=== PATIENT | male | born 1945 | race Caucasian/White ===

== ENCOUNTER 2024-10-07 14:04 | Outpatient (RCR) | payer BC, SELFPAY ==
--- NOTE | 2024-10-07 14:31 | CTCFLWUP_ITS ---
[facility] [address] [place], [place] [address] FOLLOW-UP NOTE Date: 10/07/2024 MR#: [id number] Name: DEANNE SINGH : 1945 Dx: C61 Malignant neoplasm of prostate Identification. Patient with bone mets and very high PSA of 45 noted 2 years ago and had biopsy 08/18 revealing [place] score 9 group 5 multiple areas of both right and left prostate. Patient currently receiving Lupron Xtandi as well as Xgeva. Most recent PSA 08/10/2024 less than 0.10 Prior bone scan plain x-rays shows widespread bone mets. Cervical MRI 12/03/2022 revealed osseous met involving base of odontoid but patient was not interested in getting this area treated. Having moderate pain alleviated with hydrocodone 10 every 6. Patient will be seeing his new medical oncologist Dr. Mcdonald next month. Pain meds renewed. cures website checked. I will see him again in 3 months. Electronically signed by: David Caldwell M.D. 10/07/2024 2:29 PM
== END 2024-10-17 23:59 | disposition home or self-care (01) ==
LOC: SCTC 14:04
PROVIDERS: PCP Nurse Practitioner Primary Care; Referring Provider Nurse Practitioner Primary Care; Visit Provider Radiology Therapeutic Radiology
DX: C61 Malignant neoplasm of prostate (principal); C79.51 Secondary malignant neoplasm of bone; G89.3 Neoplasm related pain (acute) (chronic); Z79.818 Long term (current) use of other agents affecting estrogen receptors and estrogen levels
CPT/HCPCS: 99213; G0463

== ENCOUNTER → 2024-11-06 | Outpatient (CLI) | payer MEDICARE, BC, SELFPAY ==
[2024-11-06 14:44] LABS: Basophils # (Auto) 0.1 Thou/mm3 (0.0-0.2); Basophils % (Auto) 1 % (0-2.5); Eosinophils # (Auto) 0.1 Thou/mm3 (0.0-0.5); Eosinophils % (Auto) 1 % (0-10); Hematocrit 38.7 % (41.0-53.0); Hemoglobin 13.1 g/dL (13.5-16.0); Immature Granulocytes % (Auto) 0 % (0-0); Immature Granulocytes Auto 0.02 Thou/mm3 (0.00-0.00); Lymphocytes % (Auto) 20 % (10-50); Mean Corpuscular HGB Conc 33.9 g/dl (31.0-37.0); Mean Corpuscular Volume 92 fL (80-100); Monocytes # (Auto) 1.1 Thou/mm3 (0.0-0.8); Monocytes % (Auto) 12 % (0-12); Neutrophils # (Auto) 6.4 Thou/mm3 (1.8-7.7); Neutrophils % (Auto) 66 % (37-80); Nucleated Red Blood Cell % 0 /100 WBC (0); Platelet Count 221 Thou/mm3 (140-440); RDW Standard Deviation 48.2 fL (35.1-43.9); Red Blood Count 4.23 Miln/mm3 (4.50-5.90); White Blood Count 9.8 Thou/mm3 (3.8-10.6)
[2024-11-06 14:54] LABS: Prostate Specific Antigen < 0.10 ng/mL (0-4.00)
[2024-11-06 15:08] LABS: Alanine Aminotransferase < 7 U/L (10-49); Albumin, Serum 4.3 gm/dL (3.4-4.8); Albumin/Globulin Ratio 2.3 (1.2-2.2); Alkaline Phosphatase 76 U/L (46-116); Anion Gap 5 (7-16); Aspartate Amino Transferase 10 U/L (0-34); BUN/Creatinine Ratio 21 Ratio (12-20); Bilirubin,Total 0.8 mg/dL (0.3-1.2); Blood Urea Nitrogen 23 mg/dL (9-23); Calcium 9.7 mg/dL (8.3-10.6); Calcium (Corrected) 9.7 mg/dL (8.5-10.1); Carbon Dioxide 27.6 mMol/L (20.0-31.0); Chloride 105 mMol/L (98-107); Creatinine (Component) 1.1 mg/dL (0.6-1.3); Globulin 1.9 gm/dL (2.3-3.5); Glucose 79 mg/dL (74-106); Osmolality,Calculated 278 (275-295); Potassium 4.2 mMol/L (3.4-5.1); Sodium 138 mMol/L (136-145); Total Protein 6.2 gm/dL (5.7-8.2); eGFR > 60 See Note
== END | disposition home or self-care (01) ==
PROVIDERS: PCP Nurse Practitioner Primary Care; Referring Provider Internal Medicine Hematology & Oncology; Visit Provider Internal Medicine Hematology & Oncology
DX: C61 Malignant neoplasm of prostate (principal); C79.51 Secondary malignant neoplasm of bone
CPT/HCPCS: 36415; 80053; 84153; 85025

== ENCOUNTER 2024-11-12 09:33 | Outpatient (RCR) | payer MEDICARE, BC, SELFPAY ==
--- NOTE | 2024-11-14 23:12 | CTCFLWUP_ITS ---
Patient: DEANNE SINGH : 1945 Page 3 of 4 FOLLOW UP NOTE DATE OF SERVICE: 11/10/2024 NAME: DEANNE SINGH ACCOUNT: [id number] : 1945 AGE: 79 INTERVAL HISTORY: Patient is here to follow-up on the prostate cancer. Denies any new complaint has been tolerating me dicine very well. Patient takes opiates for his chronic pain because of bone mets. There is no increase in the need of medication. 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 08/26/2022: Mr. Singh was admitted to [facility] because of nausea, decreased appetite as well as pain. He was found to have urinary obstruction hydroureteronephrosis. Tarango catheter was i nserted. Acute kidney injury was also documented. 08/26/2022: Mr. Singh had CT scan of the abdomen and pelvis without contrast? 08/27/2022: PSA 45.55. 08/29/2022: Bone scan? 09/03/2022: Mr. Singh had a transrectal ultrasound-guided biopsy of the prostate. Pathology showe d prostatic adenocarcinoma, [place] grade 9, grade group 5 with perineural invasion in multiple biops y samples 09/21/2022: Mr. Singh had x-rays of the pelvis, cervical spine as well as thoracic spine. These x- rays showed multiple osteoblastic metastatic lesions. 09/26/2022: Mr. Singh received first dose of Lupron 22.5 mg IM. He was also started on Casodex. 10/18/2022: Xtandi and Xgeva was started. 10/30/2022: PSA 1.83. 01/01/2023: PSA 0.28. 04/22/2023: PSA 0.12. 06/28/2023: PSA less than 0.10. 09/23/2023: PSA less than 0.10. 01/20/2024: PSA less than 0.10. 04/30/2024: PSA less than 0.10 OTHER MEDICAL HISTORY/CONDITIONS: bladder issures low blood pressure prostate ca wrist/??bilat???pin?/?platted ?Clone Other Med Hx? FAMILY HISTORY: Father:?prostate Sibling:?lukecia ?Clone Family Hx? SOCIAL HISTORY: Occupational?History:?retied [employer] Education?Level:?College Graduate, 2 year degree Marital?Status:? Tobacco?Pack?per?Day:?0 Tobacco?Use:?22?yrs ETOH?Use:?denies Drug?Note:?denies Social?History?Note:?lives?with?? ?Clone Social Hx? MEDICATIONS: 1. Casodex - 50 mg 1 tab once daily 2. Flomax - 0.4 mg 1 Capsule As directed 3. HYDROcodone-acetaminophen - 10-325 mg 1 tab q6 4. Marinol - 2.5 mg 1 Capsule twice a day 5. multivitamin - 1 Capsule Daily 6. Xtandi - 80 mg 2 tab Daily?Palabra Meds? Medications Last Reconciled by Mai Redman MA on 11/10/2024 ALLERGIES: No Known Allergies REVIEW OF SYSTEMS: A complete 14-point review of systems was performed and is negative except as noted in interval histo ry. PHYSICAL EXAMINATION: VITAL SIGNS: Temperature?97.2, B/P?132/85, Oxygen?Saturation?98% PAIN: 0 - No pain ECOG Performance Status: 1 - Symptomatic; ambulatory; restricted in strenuous activity GENERAL APPEARANCE: Appears well, in no apparent distress, appropriately interactive. HEENT: Normocephalic, no temporal wasting, normal conjunctiva, no scleral icterus, normal hearing, li ps without lesions, neck normal range of motion. CARDIOVASCULAR: Not assessed. PULMONARY: Normal respiratory effort, no respiratory distress or use of accessory muscles, speaking i n full sentences, no tachypnea. EXTREMITIES: No pedal edema or cyanosis. SKIN: Normal skin appearance. NEUROLOGIC: Alert and oriented x4. PSHYCHIATRIC: Appropriate affect, mood normal, behavior normal, intact thought and speech. LABORATORY DATA: I have personally reviewed and interpreted each of the patient?s relevant lab tests, abnormal finding s are below: Date 11/06/24 ??WHITE?BLOOD?COUNT?(Thou/mm3) 9.8 ??RED?BLOOD?COUNT?(Miln/mm3) 4.23?L ??HEMOGLOBIN?(gm/dl) 13.1?L ??HEMATOCRIT?(%) 38.7?L ??PLATELET?COUNT?(Thou/mm3) 221 ??NEUTROPHILS?%,?AUTO?(%) 66 ??LYMPH?%,?AUTO?(%) 20 ??NEUTROPHILS,?AUTO?(Thou/mm3) 6.4 ASSESSMENT/PLAN: 1. Stage IVb, castration sensitive metastatic prostate cancer with bone mets, Daniel score 9, grade 5, perineural invasion (09/03/2022) The patient is clinically doing well. He is tolerating Lupron Xt leonard and Xgeva well without any significant side effects. 2. PSA less than 0.10. 3. Currently Mr. Singh is on Lupron, Xtandi as well as Xgeva. The main side effect that he has is hot flashes.. 1. Continue Lupron, Xtandi (160 mg) as well as Xgeva. 2. I will see him back in clinic in 6 months with CBC, CMP as well as PSA done prior to the visit. CBC CMP PSA RETURN TO CLINIC: I will see him back in the clinic in 3 months. BILLING AND COMPLIANCE: I reviewed external records from providers outside my specialty as summarized above. I spent a total of 50 minutes on this patient?s care on the day of their visit excluding time spent related to any bi lled procedures. This time includes time spent with the patient as well as time spent documenting in the medical record, reviewing patients records and tests, obtaining history, placing orders, communi cating with other healthcare professionals, counseling the patient, family or caregiver, and/or care coordination for the diagnoses above. Electronically Signed by: José Mcdonald MD T: 11:10 PM CC: PCP: Lydia Grijalva Referring: Lydia Grijalva This document was completed utilizing speech recognition software. Grammatical errors, random word in sertions, pronoun errors, and incomplete sentences are an occasional consequence of this system due t o software limitations, ambient noise, and hardware issues. Any formal questions or concerns about th e content, text or information contained within the body of this dictation should be directly address ed to the provider for clarification.
== END 2024-11-17 23:59 | disposition home or self-care (01) ==
LOC: SCTC 09:33
PROVIDERS: PCP Nurse Practitioner Primary Care; Referring Provider Nurse Practitioner Primary Care; Visit Provider Internal Medicine Hematology & Oncology
DX: Z51.11 Encounter for antineoplastic chemotherapy (principal); C61 Malignant neoplasm of prostate; C79.51 Secondary malignant neoplasm of bone
CPT/HCPCS: 96372; 96402; J0897; J9217; Q3014

== ENCOUNTER → 2024-11-26 | Outpatient (BNVA) | payer OTHER, SELFPAY | END | disposition home or self-care (01) | PROVIDERS: PCP Nurse Practitioner Primary Care; Referring Provider Nurse Practitioner Primary Care; Visit Provider Urology | DX: C61 Malignant neoplasm of prostate (principal); C79.51 Secondary malignant neoplasm of bone; Z98.890 Other specified postprocedural states; F17.210 Nicotine dependence, cigarettes, uncomplicated | CPT/HCPCS: 99202; G0463 ==

== ENCOUNTER 2025-01-06 15:33 | Emergency (ER) | payer OTHER, MEDICARE, SELFPAY ==
[2025-01-06 16:04] VITALS: BP 122/71; PULSE 69; RESP 18; TEMP 37.2; O2SAT 95
--- NOTE | 2025-01-06 16:16 | XR_ITS ---
Examination: Tibia-Fibula, left , 2 views Technique: Tibia-fibula AP lateral 2 views Date and time of exam: January 06, 2024 at 1722 hrs. Indications: Redness swelling and pain involving the lower leg this week Findings: Moderate osteopenia No fracture No cortical bone destruction Surgical clips soft tissue posterior medial lower leg Partial visualization vascular stent posterior to the distal femur Impression: No cortical bone destruction
--- NOTE | 2025-01-06 16:16 | XR_ITS ---
Examination: Foot, left, 3 views Technique: AP, oblique, lateral views foot, 3 views Date and time of exam: January 06, 2025 1722 hrs. Indications: Redness swelling and pain involving the foot this this week Findings: Significant osteopenia Chronic erosions involving the distal aspect distal phalanx first digit No opaque foreign body No fracture Impression: Osteomyelitis distal phalanx third digit
--- NOTE | 2025-01-06 16:16 | XR_ITS ---
Examination: Duplex scan of the lower extremity, unilateral left complete Date and time of exam: January 06, 2025 1640 hrs. Indications: Nonhealing wound left lower extremity this month Technique: Duplex scan of the extremity veins using B-mode/grayscale imaging and Doppler spectral analysis and color flow Attention is directed to internal echogenicity, compression involving these veins, color flow assessment, spectral analysis Findings: Major deep venous structures in the extremity demonstrate normal course and caliber. There is no evidence of deep vein thrombosis. Normal color flow and spectral analysis No diagnostic visualization left posterior tibial and greater saphenous veins Impression: Limited study, no DVT demonstrated
--- NOTE | 2025-01-06 16:16 | PD.EDRME ---
Rapid Medical Screening Exam RME Arrival date/time: 01/06/25 15:33 7-year-old male presents emergency department today complains of left lower extremity redness and swelling Chief Complaint: Wound Recheck / Suture Removal Time Seen by Provider: 01/06/25 15:41 Vital signs: Vital Signs Temperature 98.9 F 01/06/25 16:04 Pulse Rate 69 01/06/25 16:04 Respiratory Rate 18 01/06/25 16:04 Blood Pressure 122/71 01/06/25 16:04 Pulse Oximetry (%) 95 01/06/25 16:04 Oxygen Delivery Method Room Air 01/06/25 16:04
[2025-01-06 17:46] LABS: Lactate (Lactic Acid) 1.5 mMol/L (0.4-2.0)
[2025-01-06 17:50] LABS: Basophils # (Auto) 0.1 Thou/mm3 (0.0-0.2); Basophils % (Auto) 1 % (0-2.5); Eosinophils # (Auto) 0.2 Thou/mm3 (0.0-0.5); Eosinophils % (Auto) 2 % (0-10); Hematocrit 39.6 % (41.0-53.0); Hemoglobin 13.3 g/dL (13.5-16.0); Immature Granulocytes % (Auto) 0 % (0-0); Immature Granulocytes Auto 0.03 Thou/mm3 (0.00-0.00); Lymphocytes % (Auto) 22 % (10-50); Mean Corpuscular HGB Conc 33.6 g/dl (31.0-37.0); Mean Corpuscular Hemoglobin 30.1 pg (25.0-35.0); Mean Corpuscular Volume 90 fL (80-100); Monocytes # (Auto) 1.1 Thou/mm3 (0.0-0.8); Monocytes % (Auto) 13 % (0-12); Neutrophils # (Auto) 5.7 Thou/mm3 (1.8-7.7); Neutrophils % (Auto) 62 % (37-80); Nucleated Red Blood Cell % 0 /100 WBC (0); Platelet Count 259 Thou/mm3 (140-440); RDW Standard Deviation 44.6 fL (35.1-43.9); Red Blood Count 4.42 Miln/mm3 (4.50-5.90); White Blood Count 9.1 Thou/mm3 (3.8-10.6)
[2025-01-06 18:05] LABS: INR 1.1 (0.9-1.3); Partial Thromboplastin Time 32.5 Seconds (22.0-36.0); Prothrombin Time 11.5 Seconds (9.0-12.2)
[2025-01-06 18:07] LABS: Sed Rate (ESR) 34 mm/hr (0-20)
[2025-01-06 18:22] LABS: Alanine Aminotransferase < 7 U/L (10-49); Albumin, Serum 4.1 gm/dL (3.4-4.8); Albumin/Globulin Ratio 1.6 (1.2-2.2); Alkaline Phosphatase 78 U/L (46-116); Anion Gap 7 (7-16); Aspartate Amino Transferase 12 U/L (0-34); BUN/Creatinine Ratio 21 Ratio (12-20); Bilirubin,Total 0.5 mg/dL (0.3-1.2); Blood Urea Nitrogen 25 mg/dL (9-23); Calcium 9.7 mg/dL (8.3-10.6); Calcium (Corrected) 9.7 mg/dL (8.5-10.1); Carbon Dioxide 27.7 mMol/L (20.0-31.0); Chloride 106 mMol/L (98-107); Creatinine (Component) 1.2 mg/dL (0.6-1.3); Globulin 2.5 gm/dL (2.3-3.5); Glucose 92 mg/dL (74-106); Osmolality,Calculated 285 (275-295); Potassium 4.3 mMol/L (3.4-5.1); Procalcitonin 0.07 ng/ml (0.0-0.49); Sodium 141 mMol/L (136-145); Total Protein 6.6 gm/dL (5.7-8.2); eGFR > 60 See Note
[2025-01-06 20:18] VITALS: BP 141/99; PULSE 71; RESP 19; TEMP 37.2; O2SAT 97
--- NOTE | 2025-01-06 20:18 | PD.EDWOUND ---
ED Wound/Laceration-RME/HPI General Chief Complaint: Wound Recheck / Suture Removal Stated Complaint: SENT BY PCP FOR POSSIBLE INFECTION IN LEFT LEG Time Seen by Provider: 01/06/25 15:41 Arrival date/time: 01/06/25 15:33 RME / HPI RME / HPI narrative: 79-year-old male patient with significant history of BPH, prostate cancer with mets to the bone stage IV, was brought in by family after patient was sent to us by PCP for possible left lower leg cellulitis, and asking if he can give IV antibiotic and discharged home on p.o. antibiotic according to the family. Patient is been having swelling and redness for the last 1 week. Patient denies any fever. Patient denies any other complaints. No medications taken prior to arrival. Related Data Home Medications ?Medication ?Instructions ?Recorded ?Confirmed hydrocodone 5 mg-acetaminophen 325 1 tab PO Q6H PRN Pain 08/26/22 11/26/24 mg tablet enzalutamide 80 mg tablet (Xtandi) 80 mg PO BID 07/24/24 07/24/24 leuprolide 1 mg/0.2 mL 1 mg subcut USEASDIRECTD 07/24/24 11/26/24 subcutaneous solution bicalutamide 50 mg tablet 50 mg PO QDAY 11/26/24 11/26/24 hydrocodone 5 mg-acetaminophen 325 1 tab PO Q6H PRN 11/26/24 11/26/24 mg tablet omeprazole 20 mg capsule,delayed 20 mg PO QDAY 11/26/24 11/26/24 release Previous Rx's ?Medication ?Instructions ?Recorded finasteride 5 mg tablet 5 mg PO QDAY #30 tabs 09/04/22 tamsulosin 0.4 mg capsule 0.4 mg PO QDAY #30 caps 09/04/22 clindamycin HCl 300 mg capsule 300 mg PO TID #21 caps 01/06/25 furosemide 20 mg tablet (Lasix) 20 mg PO QAM #10 tabs 01/06/25 potassium chloride 10 mEq 10 meq PO QDAY #10 caps 01/06/25 capsule,extended release Allergies Allergy/AdvReac Type Severity Reaction Status Date / Time No Known Allergies Allergy Verified 11/26/24 11:42 Review of Systems Review of Systems Narrative Review of Systems: Review of system reviewed and within normal limits except mentioned in HPI ED Exam Narrative Physical exam: VITAL SIGNS: Reviewed. GENERAL APPEARANCE: Alert and interactive, follows commands, no acute distress, HEAD AND FACE: Non-traumatic. ENT: PERRL, pink conjunctivitis, eyelid no trauma, Mucous membrane moist. NECK: Supple, nontender, no nuchal rigidity. CHEST: No tenderness, no crepitus, no paradoxical movement, no retractions. LUNGS: Clear, well ventilated, symmetric, no rales, no wheezing, no ronchi, no stridor, good breath sounds bilaterally. HEART: Regular rate, regular rhythm, no murmur, no gallops. ABDOMEN: Soft, positive bowel sounds, nondistended, no guarding, nontender, no rebound, no masses, RECTAL: Deferred. GENITAL: Deferred. NEUROLOGICAL: Gross motor function intact sensory function intact, Appropriate for age. MUSCULOSKELETAL: low back nontender, full range of motion. EXTREMITIES: Left lower leg swelling, with redness, nontender, full range of motion. No gangrene noted SKIN: Color pink, dry, no rash, no lacerations, no abrasions, no contusions. LYMPHATICS: Deferred. Course Quality Measures none Orders Category Date Time Status US venous doppler LE LT Stat Exams 01/06/25 16:16 Completed XR foot comp LT min 3V Stat Exams 01/06/25 16:16 Completed XR tibia fibula LT 2V Stat Exams 01/06/25 16:16 Completed Blood Culture (Lab) Stat Lab 01/06/25 17:21 Received CBC Stat Lab 01/06/25 17:21 Completed CMP [Comprehensive Metabolic Panel] Stat Lab 01/06/25 17:21 Completed CRP [C-Reactive Protein] Stat Lab 01/06/25 17:21 Completed ESR [Sed Rate (ESR)] Stat Lab 01/06/25 17:21 Completed Lactic Acid [Lactate (Lactic Acid)] Stat Lab 01/06/25 17:21 Completed PT [Prothrombin Time with INR] Stat Lab 01/06/25 17:21 Completed PTT [Partial Thromboplastin Time] Stat Lab 01/06/25 17:21 Completed Procalcitonin Stat Lab 01/06/25 17:21 Completed Clindamycin/Ns 600 mg Ivpb [Cleocin/Ns Ivpb] Med 01/06/25 20:25 Discontinued 600 mg in 50 ml IV X1 Furosemide [Lasix] Med 01/06/25 20:24 Discontinued 40 mg PO X1 ONE Vital Signs Vital signs: Vital Signs Temperature 98.9 F 01/06/25 16:04 Pulse Rate 69 01/06/25 16:04 Respiratory Rate 18 01/06/25 16:04 Blood Pressure 122/71 01/06/25 16:04 Pulse Oximetry (%) 95 01/06/25 16:04 Oxygen Delivery Method Room Air 01/06/25 16:04 Wound / Laceration [facility] Narrative [facility] Narrative:: 79-year-old male patient with significant history of BPH, prostate cancer with mets to the bone stage IV, was brought in by family after patient was sent to us by PCP for possible left lower leg cellulitis, and asking if he can give IV antibiotic and discharged home on p.o. antibiotic according to the family. Patient is been having swelling and redness for the last 1 week. Patient denies any fever. Patient denies any other complaints. No medications taken prior to arrival. CBC showed no leukocytosis. ESR was noted to be elevated at 34 BUN of 25 venous ultrasound of the leg negative for DVT x-ray of the tibia-fibula showed no cortical destruction, x-ray of the foot showed Osteomyelitis distal phalanx third digit Patient was given clindamycin IV, and Lasix p.o. Patient stable for discharge home. Patient data External records reviewed:: None Clinical information provided by:: none Social determinants that could affect healthcare access:: none Patient has the following chronic illnesses:: Stage IV prostate cancer How is presenting disease/condition affected by chronic disease/condition?: exacerbated by Evaluation data The following diagnostics were reviewed and interpreted by me:: radiology exam(s) Lab and/or radiology exams considered but not ordered:: None Interpretation Summary: Laboratory workup see results in MDM Medications / Prescriptions Medications or Prescriptions considered but not ordered:: None Medication administrations:: Medication Administration History Discontinued Medications Furosemide (Furosemide 40 Mg Tablet) 40 mg PO X1 ONE Stop: 01/06/25 20:25 Last Admin: 01/06/25 20:36 Dose: 40 mg Documented By: ERICH Clindamycin/Sodium Chloride (Cleocin/Ns Ivpb) 600 mg in 50 mls @ 100 mls/hr IV X1 ONE Stop: 01/06/25 20:54 Last Infusion: 01/06/25 20:57 Dose: Infused Documented By: Admin: 01/06/25 20:35 Dose: 100 mls/hr Documented By: ERICH Clindamycin IV and Lasix Consultations Consultation(s) initiated? (list below): No Diagnosis Wound Differential Diagnosis: abscess and other (Leg edema, leg cellulitis) Most likely diagnosis given after review of the tests above:: Leg cellulitis Admission Indicated Admission indicated?: not indicated Admission Request Was there a request for admission?: No Disposition Plan Disposition Plan: Discharge Discharge Attestation Discharge Attestation: The patient and all family members were given an opportunity to ask questions and understood the discharge instructions. Discharge instructions specifically effects, indications for sooner follow up or return to the emergency department, and the expected course of current diagnosis. Patient condition: Stable Discharge Plan Plan Patient Disposition: HOME (Self Care) Disposition Comment: stable Prescriptions/Referrals Prescriptions/Med Rec: New furosemide [Lasix] 20 mg tablet 20 mg PO QAM Qty: 10 0RF potassium chloride 10 mEq capsule, extended release 10 meq PO QDAY Qty: 10 0RF clindamycin HCl 300 mg capsule 300 mg PO TID Qty: 21 0RF No Action bicalutamide 50 mg tablet 50 mg PO QDAY hydrocodone-acetaminophen 5-325 mg tablet 1 tab PO Q6H PRN omeprazole 20 mg capsule,delayed release(DR/EC) 20 mg PO QDAY hydrocodone-acetaminophen 5-325 mg Tablet 1 tab PO Q6H PRN (Reason: Pain) tamsulosin 0.4 mg Capsule 0.4 mg PO QDAY Qty: 30 0RF finasteride 5 mg Tablet 5 mg PO QDAY Qty: 30 0RF leuprolide 1 mg/0.2 mL Solution 1 mg SUBCUT USEASDIRECTD Xtandi 80 mg Tablet 80 mg PO BID Referrals: Lydia Grijalva, [facility] [facility] [Primary Care Provider] - In 1 week Problem List Clinical Impression: Cellulitis of leg, Leg swelling Patient/Caregiver Discharge Instructions Discharge Activity: activity as tolerated Education Materials: ED Cellulitis Additional Instructions: Thank you for the opportunity for serving you today. You are stable for discharged . You are advised to: Follow-up with your PCP in 1 to 2 days Return to ED for worsening of symptoms Elevate legs as needed Take medication as prescribed Print Language: Danish Stand Alone Forms: Cammy Award Info., Patient Portal Info Letter YAAKOV/MARIA ESTHER Supervising Physician YAAKOV/MARIA ESTHER Supervising Physician: MD Sung
[2025-01-06] MEDS: CLINDAMYCIN/NS 600 MG IVPB 600 MG/50 ML BAG 100 MG IV (20:35)
[2025-01-06 20:36] VITALS: BP 141/99; PULSE 76
[2025-01-06] MEDS: Furosemide 40 MG TABLET PO (20:36)
[2025-01-06 21:00] VITALS: PULSE 74; RESP 16; TEMP 37.1; O2SAT 97
== END 2025-01-06 21:03 | disposition home or self-care (01) ==
PROVIDERS: Nurse Practitioner Primary Care; Emergency Provider Emergency Medicine; PCP Nurse Practitioner Primary Care
DX: L03.116 Cellulitis of left lower limb (principal); M86.8X7 Other osteomyelitis, ankle and foot; C61 Malignant neoplasm of prostate; C79.51 Secondary malignant neoplasm of bone
CPT/HCPCS: 36415; 73590; 73630; 80053; 83605; 84145; 85025; 85610; 85652; 85730; 86140; 87040; 93971; 96365; 99284; S0077; A9270; J0737

== ENCOUNTER 2025-01-13 10:58 | Outpatient (RCR) | payer MEDICARE, SELFPAY ==
--- NOTE | 2025-01-13 12:14 | CTCFLWUP_ITS ---
[facility] [address] [place], [place] [address] FOLLOW-UP NOTE Date: 01/13/2025 MR#: [id number] Name: DEANNE SINGH : 1945 Dx: C61 Malignant neoplasm of prostate Identification. Patient with bone mets and very high PSA of 45 noted 2021 with biopsy 09/04/2022 revealing [place] score 9 Group 5 multiple areas of both right and left prostate. Receiving Lupron Xtandi Xgeva under Dr. Mcdonald's direction. Most recent PSA less than 0.10 11/06/2024 Recent imaging study shows widespread bony mets but no pathological impending fracture. Went to ER 01/06/2025 for left leg cellulitis and prescribed clindamycin for 7-day.. Assessment #1 stage IVb metastatic prostate CA with widespread bone mets. Responding well to hormonal manipulation, Dr. Mcdonald; recent PSA less than 0.1. #2. Pain symptoms well-controlled with current regimen of hydrocodone 10 every 6. #3. Recent cellulitis left lower leg treated at ER [facility]. #4. I will see patient again in 3 months. Electronically signed by: David Caldwell M.D. 01/13/2025 12:11 PM
== END 2025-01-15 23:59 | disposition home or self-care (01) ==
LOC: SCTC 10:58
PROVIDERS: PCP Nurse Practitioner Primary Care; Referring Provider Nurse Practitioner Primary Care; Visit Provider Radiology Therapeutic Radiology
DX: C61 Malignant neoplasm of prostate (principal); C79.51 Secondary malignant neoplasm of bone; Z79.818 Long term (current) use of other agents affecting estrogen receptors and estrogen levels; G89.3 Neoplasm related pain (acute) (chronic)
CPT/HCPCS: 99213; G0463

== ENCOUNTER 2025-02-03 11:18 | Emergency (ER) | payer MEDICARE, SELFPAY ==
--- NOTE | 2025-02-03 11:40 | XR_ITS ---
Examination: Tibia-Fibula, left , 2 views Technique: Tibia-fibula AP lateral 2 views Date and time of exam: February 03, 2025 1048 hours INDICATIONS: Redness swelling and pain cellulitis left leg this week FINDINGS: Prominent osteopenia No fracture No cortical bone obstruction Partial visualization popliteal artery vascular stent Suspicious for periosteal new bone involving the medial proximal tibial shaft IMPRESSION: No fracture or cortical bone destruction Suspicious for early periosteal new bone involving the proximal medial shaft of the tibia, consider MRI lower leg without contrast follow-up
--- NOTE | 2025-02-03 11:40 | XR_ITS ---
Examination: Duplex scan of the lower extremity, unilateral left complete Date and time of exam: February 01, 2025 1232 hours INDICATIONS: Lower leg pain months Technique: Duplex scan of the extremity veins using B-mode/grayscale imaging and Doppler spectral analysis and color flow Attention is directed to internal echogenicity, compression and augmentation involving these veins, color flow assessment, spectral analysis Findings: Positive for occlusive thrombus in the left popliteal vein Remaining venous system is open Greater saphenous vein not visualized IMPRESSION: Positive for occlusive thrombus left popliteal vein
--- NOTE | 2025-02-03 11:40 | PD.EDRME ---
Rapid Medical Screening Exam RME Arrival date/time: 02/03/25 11:18 80-year-old male with stage IV prostate cancer presents to the emergency department today with complaints of left lower extremity cellulitis Chief Complaint: General Adult/Misc Complain
[2025-02-03 12:34] LABS: Lactate (Lactic Acid) 1.3 mMol/L (0.4-2.0)
[2025-02-03 12:35] LABS: Basophils # (Auto) 0.1 Thou/mm3 (0.0-0.2); Basophils % (Auto) 1 % (0-2.5); Eosinophils # (Auto) 0.1 Thou/mm3 (0.0-0.5); Eosinophils % (Auto) 1 % (0-10); Hematocrit 39.3 % (41.0-53.0); Immature Granulocytes % (Auto) 0 % (0-0); Immature Granulocytes Auto 0.04 Thou/mm3 (0.00-0.00); Lymphocytes # (Auto) 1.6 Thou/mm3 (1.0-4.8); Lymphocytes % (Auto) 16 % (10-50); Mean Corpuscular HGB Conc 33.1 g/dl (31.0-37.0); Mean Corpuscular Hemoglobin 29.1 pg (25.0-35.0); Mean Corpuscular Volume 88 fL (80-100); Monocytes # (Auto) 1.1 Thou/mm3 (0.0-0.8); Monocytes % (Auto) 11 % (0-12); Neutrophils # (Auto) 7.4 Thou/mm3 (1.8-7.7); Neutrophils % (Auto) 72 % (37-80); Nucleated Red Blood Cell % 0 /100 WBC (0); Platelet Count 327 Thou/mm3 (140-440); RDW Standard Deviation 42.5 fL (35.1-43.9); Red Blood Count 4.46 Miln/mm3 (4.50-5.90); White Blood Count 10.2 Thou/mm3 (3.8-10.6)
[2025-02-03 12:48] LABS: Sed Rate (ESR) 61 mm/hr (0-20)
[2025-02-03 12:53] LABS: INR 1.1 (0.9-1.3); Prothrombin Time 12.1 Seconds (9.0-12.2)
[2025-02-03 12:57] LABS: Prostate Specific Antigen < 0.10 ng/mL (0-4.00)
--- NOTE | 2025-02-03 13:10 | XR_ITS ---
Examination: Arterial duplex lower extremity study, left lower leg Date and time of exam: February 03, 2025 1311 hours INDICATIONS: Nonhealing wound lower leg 3 weeks Findings: Duplex sonographic imaging of the lower extremity arteries using B-mode/[place] scale imaging and Doppler spectral analysis and color flow. Left common femoral artery demonstrates no flow. Left superficial femoral artery demonstrates no flow. Left popliteal artery demonstrates no flow. Left posterior tibial artery demonstrated monophasic flow. Impression: No arterial flow recorded left common femoral left superficial femoral left popliteal left peroneal arteries Suggest correlation with CTA abdominal aorta iliofemoral post intravenous contrast follow-up
[2025-02-03 13:12] LABS: Alanine Aminotransferase 7 U/L (10-49); Albumin/Globulin Ratio 1.6 (1.2-2.2); Alkaline Phosphatase 90 U/L (46-116); Anion Gap 7 (7-16); Aspartate Amino Transferase 14 U/L (0-34); BUN/Creatinine Ratio 12 Ratio (12-20); Bilirubin,Total 0.6 mg/dL (0.3-1.2); Blood Urea Nitrogen 13 mg/dL (9-23); Calcium 9.2 mg/dL (8.3-10.6); Calcium (Corrected) 9.2 mg/dL (8.5-10.1); Chloride 105 mMol/L (98-107); Creatinine (Component) 1.1 mg/dL (0.6-1.3); Globulin 2.5 gm/dL (2.3-3.5); Glucose 101 mg/dL (74-106); Osmolality,Calculated 270 (275-295); Potassium 4.3 mMol/L (3.4-5.1); Sodium 135 mMol/L (136-145); Total Protein 6.5 gm/dL (5.7-8.2); eGFR > 60 See Note
--- NOTE | 2025-02-03 15:20 | PD.EDEXREM ---
ED Extremity Problem RME/HPI General Chief complaint: General Adult/Misc Complain Stated complaint: L) LEG CELLULITIS, UNABLE TO BEAR WT Arrival date/time: 02/03/25 11:18 Limitations: no limitations RME / HPI RME / HPI Narrative: 02/03/25 11:18 80-year-old male with stage IV prostate cancer presents to the emergency department today with complaints of left lower extremity cellulitis DR. SHEPARD MAIN ED EVALUATION: 80 year old male with history of prostate cancer with bone mets receiving Lupron Xtandi, Xgeva presents to the ED for evaluation of left lower extremity swelling, blisters, and drainage. His reports that these symptoms have been ongoing and were initially evaluated 2-3 weeks ago. At that time, he was diagnosed with cellulitis and started on a course of clindamycin. Despite completing the full course of antibiotics, the symptoms have not improved, and there has been no change in the swelling or blisters. The patient took the last dose of clindamycin approximately 10 days ago. The swelling, blisters, and drainage have persisted, and the patient is experiencing significant pain. Normally, the patient is able to ambulate with the assistance of a walker, but due to the pain and discomfort from his left lower extremity, he is unable to walk today. Denies fevers, chills. The patient has an upcoming appointment scheduled at the [facility] on 02/08/2025. Soc hx: smokes Fam hx: Alzheimer's- mother, prostate cancer- father Related Data Home Medications ?Medication ?Instructions ?Recorded ?Confirmed hydrocodone 5 mg-acetaminophen 325 1 tab PO Q6H PRN Pain 08/26/22 11/26/24 mg tablet enzalutamide 80 mg tablet (Xtandi) 80 mg PO BID 07/24/24 07/24/24 leuprolide 1 mg/0.2 mL 1 mg subcut USEASDIRECTD 07/24/24 11/26/24 subcutaneous solution bicalutamide 50 mg tablet 50 mg PO QDAY 11/26/24 11/26/24 hydrocodone 5 mg-acetaminophen 325 1 tab PO Q6H PRN 11/26/24 11/26/24 mg tablet omeprazole 20 mg capsule,delayed 20 mg PO QDAY 11/26/24 11/26/24 release Previous Rx's ?Medication ?Instructions ?Recorded finasteride 5 mg tablet 5 mg PO QDAY #30 tabs 09/04/22 tamsulosin 0.4 mg capsule 0.4 mg PO QDAY #30 caps 09/04/22 clindamycin HCl 300 mg capsule 300 mg PO TID #21 caps 01/06/25 furosemide 20 mg tablet (Lasix) 20 mg PO QAM #10 tabs 01/06/25 potassium chloride 10 mEq 10 meq PO QDAY #10 caps 01/06/25 capsule,extended release Allergies Allergy/AdvReac Type Severity Reaction Status Date / Time No Known Allergies Allergy Verified 02/03/25 11:21 Review of Systems Review of Systems Narrative Review of Systems: GEN: No fever, no chills, no weight loss EYES: No discharge, no visual changes, no pain HEENT: No ear pain, no congestion, no sore throat PULM: No shortness of breath, no cough, no congestion CV: No chest pain, no dyspnea on exertion, no palpitations GI: No nausea, no vomiting, no diarrhea, no pain, no constipation : No frequency, no urgency, no dysuria MUSC/SKEL: +LLE pain swelling with blisters, no back pain SKIN: +LLE blisters and redness. No rash NEURO: No weakness, no headache Past Medical History Past Medical History CARDIAC: Positive Cardiac Disorders, Peripheral Vascular Disease and Varicose Veins RESPIRATORY: Positive Smoking GASTROINTESTINAL: Positive Gastrointestinal Disorders, Hiatal Hernia and Gastroesophageal Reflux Disease GENITOURINARY: Positive Genitourinary Disorders, 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) and Benign Prostatic Hyperplasia MUSCULOSKELETAL: Positive Musculoskeletal Disorders, Bone Cancer, Arthritis and Rheumatoid Arthritis OTHER HISTORY: Positive Hospitalization (diagnosed with cancer, surgery), Chemotherapy (pills and injections), Chicken Pox, Measles, Mumps, Cancer and 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) Family History FAMILY HISTORY: Positive Family Respiratory Disorders, Family Gastrointestinal Problems and Family Cancer Surgical History SURGICAL: Positive Open Reduction Internal Fixation (both wrist,) Social History SMOKING STATUS: Current every day smoker SUBSTANCE USE: marijuana (medical marijuana) ED Exam General Limitations: Present no limitations General appearance: Present alert, in no apparent distress and other (Thin, chronically ill appearing male ) Head Head exam: Present atraumatic, normocephalic and normal inspection Eye Eye exam: Present normal appearance, PERRL and EOMI ENT ENT exam: Present normal exam, normal oropharynx and mucous membranes moist Neck Neck exam: Present normal inspection, full ROM and trachea midline Chest Chest inspection: Present normal inspection and symmetric chest wall rise Respiratory Respiratory exam: Present normal lung sounds bilaterally Cardiovascular Cardiovascular exam: Present regular rate, normal rhythm and normal heart sounds Abdominal Exam Abdominal exam: Present soft and normal bowel sounds Extremities Exam Extremities exam: Present other (Left lower extremity foot/ankle/LLE edema and erythema which becomes milder by mid left leg, anteriorly there are very thin areas of exudates covered by a thin layer of skin, no abscess formation, the foot is cold, anteriorly there is some wheeping skin. ) Back Exam Back exam: Present normal inspection and full ROM Neurological Exam Neurological exam: Present alert, oriented X3 and CN II-XII intact Psychiatric Psychiatric exam: Present normal affect and normal mood Skin Skin exam: Present warm, dry, intact and normal color Course Course Course Narrative: 1715: I spoke with our transfer nurse regarding transfer request. Quality Measures none Orders Category Date Time Status IV [Insert IV] NOW Care 02/03/25 15:50 Active US arterial duplex LE LT Stat Exams 02/03/25 13:10 Completed US venous doppler LE LT Stat Exams 02/03/25 11:40 Completed XR tibia fibula LT 2V Stat Exams 02/03/25 11:40 Completed Blood Culture (Lab) Stat Lab 02/03/25 12:18 Received Blood Culture (Lab) Stat Lab 02/03/25 17:20 Ordered CBC Stat Lab 02/03/25 12:18 Completed CBC Stat Lab 02/03/25 15:45 Ordered CMP [Comprehensive Metabolic Panel] Stat Lab 02/03/25 12:18 Completed CRP [C-Reactive Protein] Stat Lab 02/03/25 12:18 Completed ESR [Sed Rate (ESR)] Stat Lab 02/03/25 12:18 Completed Lactic Acid [Lactate (Lactic Acid)] Stat Lab 02/03/25 12:18 Completed Lactic Acid [Lactate (Lactic Acid)] Stat Lab 02/03/25 17:20 Ordered PSA [Prostate Specific Antigen] Stat Lab 02/03/25 12:18 Completed PT [Prothrombin Time with INR] Stat Lab 02/03/25 12:18 Completed Procalcitonin Stat Lab 02/03/25 12:18 Completed Wound Culture and Gram Stain Stat Lab 02/03/25 15:51 Ordered Acetaminophen Tab [Tylenol Tab] Med 02/03/25 15:47 Discontinued 1,000 mg PO X1 ONE Enoxaparin [Lovenox] Med 02/03/25 17:21 Once 80 mg SC X1 ONE HYDROmorphone INJ [Dilaudid Inj] Med 02/03/25 17:18 Discontinued 1 mg IVP X1 ONE Ondansetron Inj [Zofran Inj] Med 02/03/25 17:18 Discontinued 4 mg IV X1 ONE Piper/Tazo 3.375 gm Premix [Zosyn] Med 02/03/25 17:21 Ordered 3.375 gm in 50 ml IV X1 Reevaluation(s) Reevaluation #1: I discussed today's results and plan to transfer with the patient and . The states she is going to sign the patient out against medical advise and take him to the [facility] tomorrow. I have personally explained to the patient that choosing to do so may result in permanent bodily harm or . I discussed a great length that without further evaluation and monitoring there may be unforeseen circumstances and deterioration causing permanent bodily harm or as a result of their choice. The patient is alert, oriented and competent at this time. The patient states that they are aware of the serious risks as explained, but they continue to wish to leave against medical advice. Time: 17:30 Vital Signs Vital signs: Vital Signs Temperature 98.6 F 02/03/25 16:23 Pulse Rate 80 02/03/25 16:23 Respiratory Rate 18 02/03/25 16:23 Blood Pressure 128/69 02/03/25 16:23 Pulse Oximetry (%) 96 02/03/25 16:23 Oxygen Delivery Method Room Air 02/03/25 16:23 Pulse ox is 96% on room air which is adequate. Extremity Problem MDM Narrative MDM Narrative:: Paulette Cobos am scribing for and in the presence of Dr. Shepard. Patient data External records reviewed:: [facility] previous records (I reviewed outpatient oncology report from 01/13/2025 ) Clinical information provided by:: patient Social determinants that could affect healthcare access:: none Patient has the following chronic illnesses:: prostate cancer with bone mets receiving Lupron Xtandi, Xgeva How is presenting disease/condition affected by chronic disease/condition?: exacerbated by Evaluation data The following diagnostics were reviewed and interpreted by me:: lab results and radiology exam(s) Lab and/or radiology exams considered but not ordered:: None Interpretation Summary: Ordering Physician: Juan J VALVERDE)Raghu NP Date of Service: 02/03/25 Procedure(s): XR tibia fibula LT 2V Accession Number(s): [id number] cc: Juan J VALVERDE),Raghu GODFREY; Fernando Montilla MD~ Examination: Tibia-Fibula, left , 2 views Technique: Tibia-fibula AP lateral 2 views Date and time of exam: February 03, 2025 1048 hours INDICATIONS: Redness swelling and pain cellulitis left leg this week FINDINGS: Prominent osteopenia No fracture No cortical bone obstruction Partial visualization popliteal artery vascular stent Suspicious for periosteal new bone involving the medial proximal tibial shaft IMPRESSION: No fracture or cortical bone destruction Suspicious for early periosteal new bone involving the proximal medial shaft of the tibia, consider MRI lower leg without contrast follow-up Dictated By: Fernando Montilla MD Signed By: <Electronically signed by Fernando Montilla MD in OV> 02/03/25 1201 Ordering Physician: Juan J VALVERDE)Raghu NP Date of Service: 02/03/25 Procedure(s): US venous doppler LE LT Accession Number(s): [id number] cc: Juan J VALVERDE)Raghu NP; Fernando Montilla MD; NO PRIMARY/FAMILY,PHYSICIAN~ Examination: Duplex scan of the lower extremity, unilateral left complete Date and time of exam: February 01, 2025 1232 hours INDICATIONS: Lower leg pain months Technique: Duplex scan of the extremity veins using B-mode/grayscale imaging and Doppler spectral analysis and color flow Attention is directed to internal echogenicity, compression and augmentation involving these veins, color flow assessment, spectral analysis Findings: Positive for occlusive thrombus in the left popliteal vein Remaining venous system is open Greater saphenous vein not visualized IMPRESSION: Positive for occlusive thrombus left popliteal vein Dictated By: Fernando Montilla MD Signed By: <Electronically signed by Fernando Montilla MD in OV> 02/03/25 1410 Ordering Physician: Deuce Chatterjee Date of Service: 02/03/25 Procedure(s): US arterial duplex LE LT Accession Number(s): [id number] cc: Deuce Chatterjee; Fernando Montilla MD; NO PRIMARY/FAMILY,PHYSICIAN~ Examination: Arterial duplex lower extremity study, left lower leg Date and time of exam: February 03, 2025 1311 hours INDICATIONS: Nonhealing wound lower leg 3 weeks Findings: Duplex sonographic imaging of the lower extremity arteries using B-mode/[place] scale imaging and Doppler spectral analysis and color flow. Left common femoral artery demonstrates no flow. Left superficial femoral artery demonstrates no flow. Left popliteal artery demonstrates no flow. Left posterior tibial artery demonstrated monophasic flow. Impression: No arterial flow recorded left common femoral left superficial femoral left popliteal left peroneal arteries Suggest correlation with CTA abdominal aorta iliofemoral post intravenous contrast follow-up Dictated By: Fernando Montilla MD Signed By: <Electronically signed by Fernando Montilla MD in OV> 02/03/25 1412 Medications / Prescriptions Medications or Prescriptions considered but not ordered:: None Medication administrations:: Medication Administration History Enoxaparin Sodium (Enoxaparin Sod Inj 80 Mg/0.8 Ml Syringe) 80 mg SC X1 ONE Stop: 02/03/25 17:22 Piperacillin/Tazobactam/Dextrose (Zosyn) 3.375 gm in 50 mls @ 100 mls/hr IV X1 ONE Stop: 02/03/25 17:50 Discontinued Medications Acetaminophen (Acetaminophen 325 Mg Tablet) 1,000 mg PO X1 ONE Stop: 02/03/25 15:48 Last Admin: 02/03/25 16:01 Dose: 1,000 mg Documented By: Hydromorphone HCl (Hydromorphone Inj 2 Mg/Ml Vial) 1 mg IVP X1 ONE Stop: 02/03/25 17:19 Ondansetron HCl (Ondansetron Inj 2 Mg/Ml Inj 2 Ml) 4 mg IV X1 ONE; Protocol Stop: 02/03/25 17:19 See above Consultations Consultation(s) initiated? (list below): Yes Consultation #1 (Physician, Specialty, Details): I spoke with sodium chlorite operator Dr. Bennett. Discussed patients PMHx, HPI, ED course, exam findings, and radiology results. He recommends transferring. Time: 17:10 Diagnosis Extremity Problem Differential Diagnosis: gout, cellulitis, superficial thrombophlebitis, lower extremity edema and deep vein thrombosis of lower extremity Most likely diagnosis given after review of the tests above:: Peripheral vascular disease Ischemic ulceration cellulitis of the left lower extremity Admission Indicated Admission indicated?: not indicated Explain why admission is indicated or not indicated:: Patient was queued for discharge however is signing out AMA. Admission Request Was there a request for admission?: No Disposition Plan Disposition Plan: other (specify) (AMA ) Discharge Plan Plan Patient Disposition: Left Against Medical Advice Prescriptions/Referrals Prescriptions/Med Rec: No Action bicalutamide 50 mg tablet 50 mg PO QDAY hydrocodone-acetaminophen 5-325 mg tablet 1 tab PO Q6H PRN omeprazole 20 mg capsule,delayed release(DR/EC) 20 mg PO QDAY hydrocodone-acetaminophen 5-325 mg Tablet 1 tab PO Q6H PRN (Reason: Pain) tamsulosin 0.4 mg Capsule 0.4 mg PO QDAY Qty: 30 0RF finasteride 5 mg Tablet 5 mg PO QDAY Qty: 30 0RF leuprolide 1 mg/0.2 mL Solution 1 mg SUBCUT USEASDIRECTD Xtandi 80 mg Tablet 80 mg PO BID furosemide [Lasix] 20 mg tablet 20 mg PO QAM Qty: 10 0RF potassium chloride 10 mEq capsule, extended release 10 meq PO QDAY Qty: 10 0RF clindamycin HCl 300 mg capsule 300 mg PO TID Qty: 21 0RF Referrals: No Primary/Family,Physician [Primary Care Provider] - In 1 week Problem List Clinical Impression: Peripheral vascular disease, Ulcer of left lower extremity, Cellulitis of left leg Patient/Caregiver Discharge Instructions Print Language: Nicaraguan
[2025-02-03] MEDS: ACETAMINOPHEN 325 MG TABLET 1000 MG PO (16:01)
[2025-02-03 16:23] VITALS: BP 128/69; PULSE 80; RESP 18; TEMP 37; O2SAT 96
--- NOTE | 2025-02-03 17:23 | PC.CC ---
Addendum entered by Maryann Hernández RN 02/03/25 17:47: Made aware by Dr. Pena that patients family decided to leave AMA, CD given to train system operator Addendum entered by Maryann Hernández RN 02/03/25 17:31: Migue from [facility] called back at this time and call transferred to Dr. Pena Original Note: 1720-Called [facility] transfer and left VM, chart faxed will wait for call back 1718-Called for CD to be made 1715-Made aware by Dr. Pena that patient needs to be transferred to [facility] for vascular surgery or cardiology for pt lack of arterial blood flow to leg.
[2025-02-03 18:15] LABS: Lactate (Lactic Acid) 1.2 mMol/L (0.4-2.0)
[2025-02-03 18:17] LABS: Basophils # (Auto) 0.1 Thou/mm3 (0.0-0.2); Basophils % (Auto) 1 % (0-2.5); Eosinophils # (Auto) 0.1 Thou/mm3 (0.0-0.5); Eosinophils % (Auto) 1 % (0-10); Hematocrit 39.1 % (41.0-53.0); Hemoglobin 12.9 g/dL (13.5-16.0); Immature Granulocytes % (Auto) 0 % (0-0); Immature Granulocytes Auto 0.02 Thou/mm3 (0.00-0.00); Lymphocytes % (Auto) 22 % (10-50); Mean Corpuscular Hemoglobin 29.1 pg (25.0-35.0); Mean Corpuscular Volume 88 fL (80-100); Monocytes % (Auto) 11 % (0-12); Neutrophils # (Auto) 6.2 Thou/mm3 (1.8-7.7); Neutrophils % (Auto) 66 % (37-80); Nucleated Red Blood Cell % 0 /100 WBC (0); Platelet Count 338 Thou/mm3 (140-440); RDW Standard Deviation 43.1 fL (35.1-43.9); Red Blood Count 4.44 Miln/mm3 (4.50-5.90); White Blood Count 9.4 Thou/mm3 (3.8-10.6)
[2025-02-03] MEDS: ONDANSETRON INJ 2 MG/ML INJ 2 ML 4 MG IV (19:33)
[2025-02-03] MEDS: HYDROmorphone INJ 2 MG/ML VIAL 1 MG IVP (19:34)
[2025-02-03] MEDS: PIPER/TAZO 3.375 GM PREMIX 3.375 GM/50 ML BAG IV (19:37)
== END 2025-02-03 20:23 | disposition left against medical advice (07) ==
PROVIDERS: Nurse Practitioner Primary Care; Emergency Provider Family Medicine
DX: L03.116 Cellulitis of left lower limb (principal); I73.9 Peripheral vascular disease, unspecified; L97.929 Non-pressure chronic ulcer of unspecified part of left lower leg with unspecified severity; C61 Malignant neoplasm of prostate; C79.51 Secondary malignant neoplasm of bone
CPT/HCPCS: 36415; 73590; 80053; 83605; 84145; 84153; 85025; 85610; 85652; 86140; 87040; 87070; 87205; 93926; 93971; 96365; 99284; J2405; J2543; J3490; A9270

== ENCOUNTER 2025-02-18 12:59 | Outpatient (RCR) | payer MEDICARE, SELFPAY | END 2025-03-17 23:59 | disposition home or self-care (01) | LOC: SCTC 12:59 | PROVIDERS: Referring Provider Radiology Therapeutic Radiology; Visit Provider Radiology Therapeutic Radiology | DX: Z51.11 Encounter for antineoplastic chemotherapy (principal); C61 Malignant neoplasm of prostate; C79.51 Secondary malignant neoplasm of bone; Z19.1 Hormone sensitive malignancy status; Z79.818 Long term (current) use of other agents affecting estrogen receptors and estrogen levels | CPT/HCPCS: 96372; 96402; J0897; J9217 ==

== ENCOUNTER 2025-03-24 15:04 | Outpatient (RCR) | payer MEDICARE, SELFPAY ==
--- NOTE | 2025-03-28 20:31 | CTCFLWUP_ITS ---
Patient: DEANNE SINGH : 1945 Page 4 of 5 FOLLOW UP NOTE DATE OF SERVICE: 03/24/2025 NAME: DEANNE SINGH ACCOUNT: [id number] : 1945 AGE: 80 INTERVAL HISTORY: Patient is here to follow-up on the prostate cancer. Denies any new complaint has been tolerating medicine very well. Patient takes opiates for his chronic pain because of bone mets. There is no increase in the need of medication. ONCOLOGY HISTORY: DIAGNOSIS: Malignant neoplasm of prostate [ICD10] C61; Secondary malignant neoplasm of bone [ICD10] C79.51 DATE OF DIAGNOSIS: 09/04/2022 metastatic prostate cancer Stanhope score 9 STAGE/TNM: Stage IV with osseous metastatic disease TREATMENT HISTORY: Care?Plan Start?Date Cycle Day Intent Xgeva?120?mg?q?monthly?for?3?months,?followed?by?q?3?months 10/31/2022 1 90 Palliative HISTORY OF PRESENT ILLNESS: Deanne Singh is a 80-year-old ENG speaking male who was recently admitted to the hospital for failure to thrive symptoms. 08/26/2022: Mr. Singh was admitted to [facility] because of nausea, decreased appetite as well as pain. He was found to have urinary obstruction hydroureteronephrosis. Tarango catheter was inserted. Acute kidney injury was also documented. 08/26/2022: Mr. Singh had CT scan of the abdomen and pelvis without contrast? 08/27/2022: PSA 45.55. 08/29/2022: Bone scan? 09/03/2022: Mr. Singh had a transrectal ultrasound-guided biopsy of the prostate. Pathology showed prostatic adenocarcinoma, Stanhope grade 9, grade group 5 with perineural invasion in multiple biopsy samples 09/21/2022: Mr. Singh had x-rays of the pelvis, cervical spine as well as thoracic spine. These x-rays showed multiple osteoblastic metastatic lesions. 09/26/2022: Mr. Singh received first dose of Lupron 22.5 mg IM. He was also started on Casodex. 10/18/2022: Xtandi and Xgeva was started. 10/30/2022: PSA 1.83. 01/01/2023: PSA 0.28. 04/22/2023: PSA 0.12. 06/28/2023: PSA less than 0.10. 09/23/2023: PSA less than 0.10. 01/20/2024: PSA less than 0.10. 04/30/2024: PSA less than 0.10 OTHER MEDICAL HISTORY/CONDITIONS: bladder issures low blood pressure prostate ca wrist/??bilat???pin?/?platted FAMILY HISTORY: Father:?prostate Sibling:?lukecia SOCIAL HISTORY: Occupational?History:?retied [employer] Education?Level:?College Graduate, 2 year degree Marital?Status:? Tobacco?Pack?per?Day:?0 Tobacco?Use:?22?yrs ETOH?Use:?denies Drug?Note:?denies Social?History?Note:?lives?with?? MEDICATIONS: 1. Casodex - 50 mg 1 tab once daily 2. enoxaparin - 60 mg/0.6 mL Twice a Day 3. Flomax - 0.4 mg 1 Capsule As directed 4. HYDROcodone-acetaminophen - 10-325 mg 1 tab q6 5. morphine - 30 mg 1 tab twice a day 6. multivitamin - 1 Capsule Daily 7. Xtandi - 80 mg 2 tab Daily Medications Last Reconciled by Юлия Parker MA on 03/24/2025 ALLERGIES: No Known Allergies REVIEW OF SYSTEMS: A complete 14-point review of systems was performed and is negative except as noted in interval history. PHYSICAL EXAMINATION: VITAL SIGNS: PAIN: 9 - Between very severe and worst possible pain ECOG Performance Status: 0 - Asymptomatic and fully active GENERAL APPEARANCE: Appears well, in no apparent distress, appropriately interactive. HEENT: Normocephalic, no temporal wasting, normal conjunctiva, no scleral icterus, normal hearing, lips without lesions, neck normal range of motion. CARDIOVASCULAR: Not assessed. PULMONARY: Normal respiratory effort, no respiratory distress or use of accessory muscles, speaking in full sentences, no tachypnea. EXTREMITIES: No pedal edema or cyanosis. SKIN: Normal skin appearance. NEUROLOGIC: Alert and oriented x4. PSHYCHIATRIC: Appropriate affect, mood normal, behavior normal, intact thought and speech. LABORATORY DATA: I have personally reviewed and interpreted each of the patient?s relevant lab tests, abnormal findings are below: Date 01/06/25 02/03/25 ??WHITE?BLOOD?COUNT?(Thou/mm3) ? 10.2 9.4 ??RED?BLOOD?COUNT?(Miln/mm3) ? 4.46?L 4.44?L ??HEMOGLOBIN?(gm/dl) ? 13.0?L 12.9?L ??HEMATOCRIT?(%) ? 39.3?L 39.1?L ??PLATELET?COUNT?(Thou/mm3) ? 327 338 ??NEUTROPHILS?%,?AUTO?(%) ? 72 66 ??LYMPH?%,?AUTO?(%) ? 16 22 ??NEUTROPHILS,?AUTO?(Thou/mm3) ? 7.4 6.2 ??GLUCOSE,RANDOM?(mg/dL) 92 101 ? ??BLOOD?UREA?NITROGEN?(mg/dL) 25?H 13 ? ??CREATININE?(mg/dL) 1.20 1.10 ? ??SODIUM?(mmol/L) 141 135?L ? ??POTASSIUM?(mmol/L) 4.3 4.3 ? ??CHLORIDE?(mmol/L) 106 105 ? ??CrCl?(CandG)?(ml/min) 46.05 53.39 ? ??AST/SGOT?(Unit/L) 12 14 ? ??ALT/SGPT?(Unit/L) <?7?L 7?L ? ??ALKALINE?PHOSPHATASE?(Unit/L) 78 90 ? ??BILIRUBIN,?TOTAL?(mg/dL) 0.5 0.6 ? ??PROTEIN?TOTAL?(gm/dl) 6.6 6.5 ? ??ALBUMIN,?SERUM?(gm/dl) 4.1 4.0 ? ??GLOBULIN?(gm/dl) 2.5 2.5 ? ??ALBUMIN/GLOBULIN?RATIO 1.6 1.6 ? ??CALCIUM,?SERUM?(mg/dL) 9.7 9.2 ? ??CALCIUM?SERUM?(CORRECTED)?(mg/dL) 9.7 9.2 ? ASSESSMENT/PLAN: 1. Stage IVb, castration sensitive metastatic prostate cancer with bone mets, Daniel score 9, grade 5, perineural invasion (09/03/2022) The patient is clinically doing well. He is tolerating Lupron Xtandi and Xgeva well without any significant side effects. 2. PSA less than 0.10. 3. Currently Mr. Singh is on Lupron, Xtandi as well as Xgeva. The main side effect that he has is hot flashes.. 1. Continue Lupron, Xtandi (160 mg) as well as Xgeva. 2. I will see him back in clinic in 4 months with CBC, CMP as well as PSA done prior to the visit. CBC CMP PSA ORDERS: Order # Description RETURN TO CLINIC: BILLING AND COMPLIANCE: I reviewed external records from providers outside my specialty as summarized above. I spent a total of 50 minutes on this patient?s care on the day of their visit excluding time spent related to any billed procedures. This time includes time spent with the patient as well as time spent documenting in the medical record, reviewing patients records and tests, obtaining history, placing orders, communicating with other healthcare professionals, counseling the patient, family or caregiver, and/or care coordination for the diagnoses above. Electronically Signed by: {Object.Sanct_ID*PnP.NameFL@M}, {Object.Sanct_ID*PnP.Suffix@U} D: {Object.Sanct_Date} T: {Object.Sanct_Time} CC: PCP: No Primary/family, Physician Referring: José Mcdonald This document was completed utilizing speech recognition software. Grammatical errors, random word insertions, pronoun errors, and incomplete sentences are an occasional consequence of this system due to software limitations, ambient noise, and hardware issues. Any formal questions or concerns about the content, text or information contained within the body of this dictation should be directly addressed to the provider for clarification.
== END 2025-04-17 23:59 | disposition home or self-care (01) ==
LOC: SCTC 15:04
PROVIDERS: Referring Provider Internal Medicine Hematology & Oncology; Visit Provider Internal Medicine Hematology & Oncology
DX: C61 Malignant neoplasm of prostate (principal); C79.51 Secondary malignant neoplasm of bone; Z79.818 Long term (current) use of other agents affecting estrogen receptors and estrogen levels
CPT/HCPCS: 99213; G0463

== ENCOUNTER 2025-04-06 14:10 | Emergency (ER) | payer OTHER, MEDICARE, SELFPAY ==
--- NOTE | 2025-04-06 14:20 | EDNOTE_ITS ---
ED General RME/HPI General Chief complaint: Urogenital-Male Stated complaint: CATHETER PROBLEMS Time Seen by Provider: 04/06/25 14:18 Arrival date/time: 04/06/25 14:10 CC: Pain with urination, decreased flow after Tarango replacement done yesterday HPI patient presents to the ER via EMS. Patient is awake alert oriented said he has not been drinking or eating because he is not thirsty or hungry. Patient is awake alert oriented x 2 appears in mild discomfort but not in any acute distress. No complaints of chest pain shortness of breath or difficulty breathing. Related Data Home Medications ?Medication ?Instructions ?Recorded ?Confirmed hydrocodone 5 mg-acetaminophen 325 1 tab PO Q6H PRN Pa in 08/26/22 11/26/24 mg tablet enzalutamide 80 mg tablet (Xtandi) 80 mg PO BID 07/24/24 leuprolide 1 mg/0.2 mL 1 mg subcut USEASDIRECTD 05/1111/26/24 subcutaneous solution bicalutamide 50 mg tablet 50 mg PO QDAY 11/26/2411/26 hydrocodone 5 mg-acetaminophen 325 1 tab PO Q6H PRN 11/26/24 mg tablet omeprazole 20 mg capsule,delayed 20 mg PO QDAY 5 11/26/24 release Previous Rx's ?Medication ?Instructions ?Recorded finasteride 5 mg tablet 5 mg PO QDAY #30 tabs tamsulosin 0.4 mg capsule 0.4 mg PO QDAY #30 caps 08/18 07/09 clindamycin HCl 300 mg capsule 300 mg PO TID #21 caps 01/06/25 furosemide 20 mg tablet (Lasix) 20 mg PO QAM #10 tabs 01/06/25 potassium chloride 10 mEq 10 meq PO QDAY #10 caps 12/19 08/12 capsule,extended release ciprofloxacin HCl 500 mg tablet 500 mg PO BID #14 tabs 04/06/25 (Cipro) Allergies Allergy/AdvReac Type Severity Reaction Status Date / Time No Known Allergies Allergy Verified 04/06/25 16:47 Review of Systems Review of Systems Narrative Review of Systems: GEN: No fever, no chills, no weight loss EYES: No discharge, no visual changes, no pain HEENT: No ear pain, no congestion, no sore throat PULM: No shortness of breath, no cough, no congestion CV: No chest pain, no dyspnea on exertion, no palpitations GI: No nausea, no vomiting, no diarrhea, no pain, no constipation : No frequency, no urgency, no dysuria MUSC/SKEL: No joint pain, no back pain SKIN: No rash PSYCH: No hallucinations, no depression HEME/LYMPH: No easy bleeding or bruising tendencies NEURO: No weakness, no headache Past Medical History Past Medical History NEUROLOGIC: Negative Neurological Disorders or Seizures CARDIAC: Positive Cardiac Disorders, Peripheral Vascular Disease and Varicose Veins; Negative Congestive Heart Failure RESPIRATORY: Positive Smoking; Negative Chronic Obstructive Pulmonary Disease (COPD) or Asthma GASTROINTESTINAL: Positive Gastrointestinal Disorders, Hiatal Hernia and Gastroesophageal Reflux Disease; Negative Hepatitis GENITOURINARY: Positive Genitourinary Disorders, 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) and Benign Prostatic Hyperplasia; Negative Renal Disease MUSCULOSKELETAL: Positive Musculoskeletal Disorders, Bone Cancer, Arthritis and Rheumatoid Arthritis ENDOCRINE: Negative Endocrine Disorders, Diabetes Mellitus Type 1 or Diabetes Mellitus Type 2 HEMATOLOGIC: Negative Blood Disorders or Sickle Cell Disease OTHER HISTORY: Positive Hospitalization (diagnosed with cancer, surgery), Chemotherapy (pills and injections), Chicken Pox, Measles, Mumps, Cancer and 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); Negative Autoimmune Disease, Down Syndrome, Developmental Delay, Shingles, Falls, Blood Transfusions, Blood Transfusion Reaction or Anesthesia Reactions Family History FAMILY HISTORY: Positive Family Respiratory Disorders, Family Gastrointestinal Problems and Family Cancer; Negative Family Psychiatric Problems, Family Cardiac Disorders, Family Surgery or Family Anesthesia Reaction Surgical History SURGICAL: Positive Open Reduction Internal Fixation (both wrist,) Social History SMOKING STATUS: Current every day smoker SUBSTANCE USE: marijuana (medical marijuana) ED Exam Narrative Physical exam: [General: Mild discomfort not in any acute distress Head normocephalic HEENT: Within acceptable limits Neck is supple nontender Chest equal chest rise nontender to palpation Respiratory: Clear to auscultation no wheezes crackles or rubs CV: Rate rhythm is regular no murmurs rubs or clicks Abdomen is soft nontender no masses positive bowel sounds all 4 quadrants Back: No CVA tenderness no spinous process tenderness from cervical spine thoracic and lumbar spine Skin: Intact no petechiae rash induration ulceration or crepitus Extremities: Moving all extremity against resistance cap refill less than 2 seconds neurosensory intact Neuro: Awake alert oriented x2, person and place, Glascow coma 15 no focal deficits] Course Quality Measures none Orders Category Date Time Status Saline [Insert IV] NOW Care 04/06/25 14:19 Active CBC Stat Lab 04/06/25 14:24 Completed CMP [Comprehensive Metabolic Panel] Stat Lab 04/06/25 14:24 Completed Urinalysis, C/S if Indicated Stat Lab 04/06/25 16:34 Completed Urine Culture Stat Lab 04/06/25 16:34 Received HYDROcodone/APAP 10/325 [[place] 10/325] Med 04/06/25 17:10 Discontinued 1 tab PO X1 ONE Sodium Chloride 0.9% 1000 ml [Ns] 1,000 ml Med 04/06/25 14:19 Discontinued IV 999 mls/hr Sodium Chloride 0.9% 1000 ml [Ns] 1,000 ml Med 04/06/25 17:07 Active IV 999 mls/hr cefTRIAXone/D5w 1gm IV premix [Rocephin/D5w 1gm IV Med 04/06/25 17:49 Ordered premix] 1 gm in 50 ml IV X1 Vital Signs Vital signs: Vital Signs Temperature 98.9 F 04/06/25 14:35 Pulse Rate 75 04/06/25 14:35 Respiratory Rate 17 04/06/25 14:35 Blood Pressure 117/78 04/06/25 14:35 Pulse Oximetry (%) 97 04/06/25 14:35 Oxygen Delivery Method Room Air 04/06/25 14:35 Discharge Plan Plan Patient Disposition: HOME (Self Care) Patient condition on transfer: Stable Prescriptions/Referrals Prescriptions/Med Rec: New ciprofloxacin HCl [Cipro] 500 mg tablet 500 mg PO BID Qty: 14 0RF No Action bicalutamide 50 mg tablet 50 mg PO QDAY hydrocodone-acetaminophen 5-325 mg tablet 1 tab PO Q6H PRN omeprazole 20 mg capsule,delayed release(DR/EC) 20 mg PO QDAY hydrocodone-acetaminophen 5-325 mg Tablet 1 tab PO Q6H PRN (Reason: Pain) tamsulosin 0.4 mg Capsule 0.4 mg PO QDAY Qty: 30 0RF finasteride 5 mg Tablet 5 mg PO QDAY Qty: 30 0RF leuprolide 1 mg/0.2 mL Solution 1 mg SUBCUT USEASDIRECTD Xtandi 80 mg Tablet 80 mg PO BID furosemide [Lasix] 20 mg tablet 20 mg PO QAM Qty: 10 0RF potassium chloride 10 mEq capsule, extended release 10 meq PO QDAY Qty: 10 0RF clindamycin HCl 300 mg capsule 300 mg PO TID Qty: 21 0RF Referrals: No Primary/Family,Physician [Primary Care Provider] - In 1 week Ward Molina MD [Physician] - In 1 week Problem List Clinical Impression: UTI (urinary tract infection) Patient/Caregiver Discharge Instructions Education Materials: ED Bladder Infection, Male (Adult) Additional Instructions: Take the medications as prescribed, continue to drink plenty of water, or Gatorade diluted with water. Follow-up with your primary care doctor if there is worsening of symptoms return the emergency room medially for further evaluation. 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 No thrombocytopenia CMP shows no significant electrolyte imbalances no renal impairment glucose of 113 no transaminitis or T. bili elevation Urine is cloudy 2+ protein 3+ blood RBCs 1535 WBC of 383 bacteria 3+ leukocyte and nitrite positive. Medication Administration(s) Medication Administration History Sodium Chloride (Ns) 1,000 mls @ 999 mls/hr IV .Q1H1M ONE Stop: 04/06/25 18:07 Last Admin: 04/06/25 17:30 Dose: 999 mls/hr Documented By: DO Ceftriaxone Sodium/Dextrose (Rocephin/D5w 1gm Iv Premix) 1 gm in 50 mls @ 100 mls/hr IV X1 ONE Stop: 04/06/25 18:18 Discontinued Medications Hydrocodone Bitart/Acetaminophen (Hydrocodone/Apap 10/325 Tab) 1 tab PO X1 ONE Stop: 04/06/25 17:11 Last Admin: 04/06/25 17:29 Dose: 1 tab Documented By: DO Sodium Chloride (Ns) 1,000 mls @ 999 mls/hr IV .Q1H1M ONE Stop: 04/06/25 15:19 Last Infusion: 04/06/25 17:00 Dose: Infused Documented By: Admin: 04/06/25 15:37 Dose: 999 mls/hr Documented By: Diagnosis Differential diagnosis: UTI pyelonephritis Tarango obstruction Differential dx and/or dx ruled out: Patient has a UTI. Probably contributing to loss of appetite patient will get antibiotics to be started on. Dispositon Dispo comments (follow instructions): Suspect there is a combination of poor p.o. intake as well as a partial occlusion of the Tarango catheter is resulting in a decreased urinary output as the patient has no acute renal failure. Will give the patient a second liter of fluid and discharge home without medication if the urine is negative for UTI.
[2025-04-06 14:30] LABS: Basophils # (Auto) 0.1 Thou/mm3 (0.0-0.2); Basophils % (Auto) 1 % (0-2.5); Eosinophils # (Auto) 0.1 Thou/mm3 (0.0-0.5); Eosinophils % (Auto) 1 % (0-10); Hematocrit 39.8 % (41.0-53.0); Hemoglobin 13.4 g/dL (13.5-16.0); Immature Granulocytes % (Auto) 0 % (0-0); Immature Granulocytes Auto 0.03 Thou/mm3 (0.00-0.00); Lymphocytes # (Auto) 1.4 Thou/mm3 (1.0-4.8); Lymphocytes % (Auto) 13 % (10-50); Mean Corpuscular HGB Conc 33.7 g/dl (31.0-37.0); Mean Corpuscular Volume 83 fL (80-100); Monocytes # (Auto) 0.9 Thou/mm3 (0.0-0.8); Monocytes % (Auto) 8 % (0-12); Neutrophils % (Auto) 77 % (37-80); Nucleated Red Blood Cell % 0 /100 WBC (0); Platelet Count 317 Thou/mm3 (140-440); RDW Standard Deviation 45.9 fL (35.1-43.9); Red Blood Count 4.78 Miln/mm3 (4.50-5.90); White Blood Count 10.4 Thou/mm3 (3.8-10.6)
[2025-04-06 14:35] VITALS: BP 117/78; PULSE 75; RESP 17; TEMP 37.2; O2SAT 97
[2025-04-06 14:59] LABS: Alanine Aminotransferase < 7 U/L (10-49); Albumin/Globulin Ratio 1.5 (1.2-2.2); Alkaline Phosphatase 111 U/L (46-116); Anion Gap 8 (7-16); Aspartate Amino Transferase 10 U/L (0-34); BUN/Creatinine Ratio 19 Ratio (12-20); Bilirubin,Total 0.8 mg/dL (0.3-1.2); Blood Urea Nitrogen 17 mg/dL (9-23); Calcium 8.7 mg/dL (8.3-10.6); Calcium (Corrected) 8.7 mg/dL (8.5-10.1); Carbon Dioxide 24.6 mMol/L (20.0-31.0); Chloride 106 mMol/L (98-107); Creatinine (Component) 0.9 mg/dL (0.6-1.3); Globulin 2.7 gm/dL (2.3-3.5); Glucose 113 mg/dL (74-106); Osmolality,Calculated 280 (275-295); Potassium 3.8 mMol/L (3.4-5.1); Sodium 139 mMol/L (136-145); Total Protein 6.7 gm/dL (5.7-8.2); eGFR > 60 See Note
[2025-04-06 15:16] VITALS: PULSE 86
--- NOTE | 2025-04-06 15:16 | PC.NURSE ---
PT CAME IN WITH C/O DECREASED URINATION AND DECREASED ORAL INTAKE. PER PT HE HAD HIS CATHETER CHANGED THIS AM DUE TO IT NOT DRAINING AND STATES THAT HE FEELS BURNING. URINE IS NOTED IN LEG BAG WITH LOTS OF SEDIMENT NOTED. LEG BAG REMOVED AND DRAINAGE BAG APPLIED PER DOCTORS ORDERS. PT C/O PAIN ALL OVER. PER PT THIS IS NORMAL FOR HIM DUE TO CANCER. PT PLACED ON CC MONITOR.
[2025-04-06] MEDS: SODIUM CHLORIDE 0.9% 1000 ML 1,000 ML 999 ML IV ×2 (15:37→17:30)
[2025-04-06 16:22] VITALS: BP 136/81; PULSE 78; RESP 14; TEMP 36.9; O2SAT 98
[2025-04-06 16:49] LABS: Collection Type, Urine Catheter; Squamous Epithelial Cell,Urine 0 /hpf (0-5)
[2025-04-06 17:17] LABS: Bacteria,Urine 3+; Bilirubin,Urine Negative (Negative); Blood,Urine 3+ (Negative); Color,Urine Yellow (Lt Yel-Yel); Glucose, Urine Negative (Negative); Ketones,Urine Trace (Negative); Leukocyte Esterase,Urine Positive (Negative); Nitrite,Urine Positive (Negative); Protein,Urine 2+ (Neg - Trace); RBC,Urine 1535 /hpf (0-3); Specific Gravity,Urine 1.027 (1.001-1.035); WBC,Urine 383 /hpf (0-5)
[2025-04-06 17:19] LABS: Clarity,Urine Cloudy (Clear/Hazy); Culture Indicated,Urine Yes
[2025-04-06] MEDS: HYDROcodone/APAP 10/325 TAB PO (17:29)
--- NOTE | 2025-04-06 17:30 | PC.NURSE ---
PT REQUESTING COFFEE. COFFEE GIVEN AT THIS TIME. AT BEDSIDE. CALL LIGHT WITH IN REACH
[2025-04-06] MEDS: cefTRIAXone/D5w 1gm IV premix 1 GM/50 ML BAG IV (17:58)
[2025-04-06 18:10] VITALS: BP 131/77; PULSE 73; RESP 17; TEMP 36.8; O2SAT 99
== END 2025-04-06 19:17 | disposition home or self-care (01) ==
PROVIDERS: Registered Nurse General Practice; Emergency Provider Emergency Medicine
DX: N39.0 Urinary tract infection, site not specified (principal)
CPT/HCPCS: 36415; 80053; 81001; 85025; 87077; 87086; 87186; 96361; 96365; 99284; J0696; J7030; A9270